=== PATIENT | male | born 1955 | race Caucasian/White ===

== ENCOUNTER 2016-11-19 07:38 | Day surgery (SDC) | payer OTHER ==
[~2016-11-19] VITALS: Ht 177.8 cm; Wt 88.6 kg
[~2016-11-19 07:38] MED LIST: 0.9% Sodium Chloride 1,000 ML IV SCH; AMIT10TA6 PO; AZU500 PO; CELE200C PO; CHOL100043 PO; CLOB15CR2 TP; GABA-502 PO; OMEG500C PO; OMEP-113 PO; Sodium Chloride LOK Flush 10 mL Syringe IV PRN; TRAM50TA2 PO; fentaNYL-PF 50 mCg/mL 2 mL Inj IVPUSH PRN
[2016-11-19 07:52] VITALS: BP 135/90; PULSE 73; RESP 16; O2SAT 98
[2016-11-19 08:33] VITALS: BP 137/81; PULSE 64; RESP 14; O2SAT 91
[2016-11-19 08:49] VITALS: BP 117/79; PULSE 68; RESP 12; O2SAT 95
--- NOTE | 2016-11-19 08:54 | ENDO ---
[address] [address] ENDOSCOPY PROCEDURE PATIENT: SILVERIO SPEAR : 1955 MR#: [id number] ADMIT: 11/19/2016 JOB ID: [id number] DATE OF SERVICE: 11/19/2016 PROCEDURE PERFORMED: Colonoscopy. INDICATIONS: Patient with a history of chronic ulcerative colitis. ASA CLASSIFICATION: The patient's ASA classification is II. MALLAMPATI SCORE: Mallampati score was 2. MEDICATIONS: 1. Versed 4 mg. 2. Fentanyl 100 mcg. INSTRUMENT USED: PCF-H180AL. PREPARATION QUALITY: Poor. PROCEDURE DETAILS: After informed consent was obtained, the patient was brought into the GI suite, where he was placed on oxygen via nasal cannula and monitored with continuous pulse oximeter, telemetry, and blood pressure monitoring. A time-out was performed. Then, he was placed in the left lateral decubitus position and medications were administered for sedation. Digital rectal exam was performed which was unremarkable. The colonoscope was then inserted into the rectum and advanced under direct visualization to the mid transverse colon. Beyond this point, the colonoscope was not advanced, as the prep was poor, making visualization suboptimal. At this point, the colonoscope was withdrawn back into the rectum. Retroflexion was performed. Following retroflexion, remaining air in the rectum was suctioned, and procedure was completed. FINDINGS: 1. Poor prep. 2. Visualized mucosa from rectum to mid transverse colon appeared normal. RECOMMENDATIONS: Repeat colonoscopy with two day prep. COMPLICATIONS: None. ESTIMATED BLOOD LOSS: Zero.
[2016-11-19 08:59] VITALS: BP 135/83; PULSE 57; RESP 16; O2SAT 93
[2016-11-19 09:19] VITALS: BP 135/83; PULSE 66; RESP 12; O2SAT 94
[2016-11-20] MEDS ORDERED: OMEP20TA86 PO (09:56)
== END 2016-11-19 23:59 | disposition home or self-care (01) ==
LOC: END 07:38
PROVIDERS: ATTEND Internal Medicine Gastroenterology
DX: K51.919 Ulcerative colitis, unspecified with unspecified complications (principal)
CPT/HCPCS: 45378; G0500; J2250; J3010; J7030

== ENCOUNTER 2016-11-20 09:46 | Day surgery (SDC) | payer OTHER ==
[~2016-11-20] VITALS: Ht 177.8 cm; Wt 88.0 kg
[~2016-11-20 09:46] MED LIST changes: -0.9% Sodium Chloride 1,000 ML IV SCH; -GABA-502 PO
[2016-11-20 09:54] VITALS: BP 150/94; PULSE 84; RESP 16; O2SAT 98
[2016-11-20] MEDS ORDERED: OMEP20TA86 PO (09:56)
[2016-11-20] MEDS: 0.9% Sodium Chloride 1,000 ML IV SCH ×2 (10:18→10:35)
[2016-11-20 10:40] VITALS: BP 127/80; PULSE 62; RESP 12; O2SAT 92
[2016-11-20 10:50] VITALS: BP 122/77; PULSE 61; RESP 16; O2SAT 92
[2016-11-20 11:00] VITALS: BP 129/80; PULSE 58; RESP 16; O2SAT 95
[2016-11-20 11:10] VITALS: BP 130/82; PULSE 58; RESP 16; O2SAT 93
--- NOTE | 2016-11-20 11:39 | ENDO ---
[address] [address] ENDOSCOPY PROCEDURE PATIENT: SILVERIO SPEAR : 1955 MR#: [id number] ADMIT: 11/20/2016 JOB ID: [id number] PROCEDURE: Colonoscopy. INDICATION: Patient with a history of chronic ulcerative colitis. ANESTHESIA: Patient's ASA classification is two. Mallampati score is two. MEDICATIONS: 1. Versed 6 mg. 2. Fentanyl 125 mcg. INSTRUMENT USED: PCF-H180AL. PREPARATION QUALITY: Fair. PROCEDURE DETAILS: After informed consent was obtained, the patient was brought into the GI suite, where he was placed on oxygen via nasal cannula and monitored with continuous pulse oximeter, telemetry, and blood pressure monitoring. A time-out was performed, then he was placed in the left lateral decubitus position and medications were administered for sedation. Digital rectal exam with palpation of the prostate was performed, which was unremarkable. The colonoscope was then inserted into the rectum and advanced under direct visualization to the cecum, which was identified by the presence of the ileocecal valve and appendiceal orifice. Once the cecum was reached, the colonoscope was withdrawn back into the rectum as the mucosa and lumen were examined. In the rectum, retroflexion was performed. Following retroflexion, the remaining air in the rectum was suctioned and procedure was completed. FINDINGS: 1. Normal-appearing colon mucosa from cecum to sigmoid colon. In the sigmoid colon there was evidence of prior inflammation as there was scarring noted at the mucosa. Multiple biopsies were obtained throughout the entire colon and rectum. 2. Retroflexed views in the rectum revealed small to moderate-sized internal hemorrhoids. IMPRESSION: 1. Scarring of the mucosa in the sigmoid colon suggestive of prior active inflammation. 2. Small to moderate internal hemorrhoids. RECOMMENDATIONS: 1. Await biopsy results. 2. Continue current medications. 3. Follow up in GI Clinic in 4-6 weeks. COMPLICATIONS: None. ESTIMATED BLOOD LOSS: Less than 5 mL.
--- NOTE | 2016-11-21 13:49 | PATH ---
SURGICAL PATHOLOGY Attending Physician:Nadege Adams CASE STATUS: Signed Out PATIENT NAME: SILVERIO SPEAR PID: [id number] : 1955 DATE COLLECTED:11/20/2016 17:36 SPECIMEN: 1: Colon, Biopsy 2: Colon, Biopsy 3: Colon, Biopsy 4: Rectum, Biopsy CLINICAL HISTORY: 1). RIGHT COLON BIOPSY 2). TRANSVERSE COLON BIOPSY 3). LEFT COLON BIOPSY 4). RECTAL BIOPSY FINAL DIAGNOSIS: 1. 2.RIGHT COLON RANDOM BIOPSIES, TRANSVERSE COLON RANDOM BIOPSIES: FRAGMENTS OF NORMAL-APPEARING COLON MUCOSA PRESENT WITHIN BOTH SPECIMENS. Negative for evidence of significant architectural distortion. Negative for significant inflammation, dysplasia and malignancy. 3. 4.LEFT COLON RANDOM BIOPSIES AND RECTAL RANDOM BIOPSIES: SMALL FOCI OF CRYPT DROPOUT WITH MUCOSAL SCARRING PRESENT WITHIN BOTH SPECIMENS CONSISTENT WITH PREVIOUS MUCOSAL INJURY. NO OTHER SIGNIFICANT ARCHITECTURAL DISTORTION PRESENT. Negative for significant inflammation, dysplasia and malignancy. ICD10 code S36.502 GROSS DESCRIPTION: The specimen is received in four formalin filled containers labeled with the patient's name. 1). The specimen is sublabeled "right colon" and consists of 4 portions of tissue which aggregate to 0.4 x 0.4 x 0.2 CM. The specimen is entirely submitted in cassette 1A. 2). The specimen is sublabeled "transverse colon" and consists of multiple portions of tissue which aggregate to 0.4 x 0.4 x 0.2 CM. The specimen is entirely submitted in cassette 2A. 3). The specimen is sublabeled "left colon" and consists of 4 portions of tissue which aggregate to 0.3 x 0.3 x 0.2 CM. The specimen is entirely submitted in cassette 3A. 4). The specimen is sublabeled "rectal" and consists of 4 portions of tissue which aggregate to 0.4 x 0.4 x 0.2 CM. The specimen is entirely submitted in cassette 4A. 11/20/2016 [facility] MICRO DESCRIPTION: See diagnosis. ICD-9 CODES: CPT CODES: 1: 24092 2: 63304 3: 35877 4: 11340 Electronically Signed Out Mando Dyer MD [facility], [place] [address] Technical component performed at [facility], [address], [place], [address]
== END 2016-11-20 23:59 | disposition home or self-care (01) ==
LOC: END 09:46
PROVIDERS: ATTEND Internal Medicine Gastroenterology
DX: Z12.11 Encounter for screening for malignant neoplasm of colon (principal); Z86.010 Personal history of colon polyps; Z80.0 Family history of malignant neoplasm of digestive organs; K64.8 Other hemorrhoids; K51.90 Ulcerative colitis, unspecified, without complications; M19.90 Unspecified osteoarthritis, unspecified site; Z87.891 Personal history of nicotine dependence
CPT/HCPCS: 45380; 99153; G0500; J2250; J3010; J7030